=== PATIENT | male | born 1990 | race Caucasian/White ===

== ENCOUNTER 2017-09-01 14:15 | Emergency (ER) | payer SELFPAY ==
[~2017-09-01] VITALS: Ht 188 cm; Wt 64.0 kg
[~2017-09-01 14:15] MED LIST: BACT800T5 PO; CEPH-460 PO
[2017-09-01 14:17] VITALS: BP 136/79; PULSE 92; RESP 16; TEMP 98.5; O2SAT 98
[2017-09-01] MEDS ORDERED: AMOX500C PO (15:08)
[2017-09-01] MEDS ORDERED: IBUP1TAB7 PO (15:08)
[2017-09-01] MEDS ORDERED: MOME17I EACH NARE (15:08)
--- NOTE | 2017-09-01 15:08 | PD ---
HPI Chief Complaint: Cold / Flu Symptoms Time Seen by Provider: 14:50 Travel History International Travel<30 days: No Contact w/Intl Traveler<30days: No Traveled to known affect area: No History of Present Illness HPI 27-year-old male presents to emergency Department with complaint of nasal congestion, headache, body aches, cough 2 weeks. Reports subjective fevers a week ago. Reports onset of right ear pain last night. Reports sinus pressure. Denies chest tightness, chest pain, shortness of breath, wheezing. Reports tobacco use. Denies abdominal pain, vomiting. Has been using [id number] medications for symptom management. Symptoms are mild in severity. No known aggravating or relieving factors. No primary care provider. Denies significant past medical history. Has no other medical complaints. No other modifying factors or associated signs and symptoms. 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 STS "I'M IN RECOVERY." "PLEASE LIST ALLERGY." Reported Meds & Prescriptions Reported Meds & Active Scripts Active Nasonex Nasal [place] (Mometasone Furoate) 50 Mcg/Act Naspr 2 [place] EACH NARE DAILY PRN Ibuprofen 800 Mg Tab 800 Mg PO Q6HR PRN Amoxicillin 500 Mg Cap 500 Mg PO BID 10 Days Keflex (Cephalexin) 500 Mg Cap 500 Mg PO Q6H 7 Days Bactrim DS (Sulfamethoxazole-Trimethoprim) 800-160 Mg Tab 1 Tab PO BID Review of Systems Except as stated in HPI: all other systems reviewed are Neg Physical Exam Narrative GENERAL: Well-nourished, well-developed male patient, in no acute distress; afebrile, nontoxic-appearing SKIN: Warm and dry. No rash. HEAD: Atraumatic. Normocephalic. EYES: Pupils equal and round. No scleral icterus. No injection or drainage. EARS: Bilateral pinnae and external canals appear within normal limits. Right tympanic membrane with erythema, loss of landmarks, and with dullness; without perforation. ENT: Mucosa pink and moist. Oral Pharynx without erythema; without edema or exudates. No uvular edema. No uvular, palatal, or tonsillar deviation. Airway patent. NECK: Trachea midline. No lymphadenopathy. CARDIOVASCULAR: Regular rate and rhythm. No murmur appreciated. RESPIRATORY: No accessory muscle use. Clear to auscultation. Breath sounds equal bilaterally. GASTROINTESTINAL: Flat. MUSCULOSKELETAL: No obvious deformities. No clubbing. No cyanosis. No edema. NEUROLOGICAL: Awake and alert. Oriented 3. No obvious cranial nerve deficits. Motor grossly within normal limits. Normal speech. Moves all extremities. 5/5 strength to all extremities. PSYCHIATRIC: Appropriate mood and affect; insight and judgment normal. Data Data Last Documented VS Vital Signs Date Time Temp Pulse Resp B/P (MAP) Pulse Ox O2 Delivery O2 Flow Rate FiO2 09/01/17 14:17 98.5 92 16 136/79 (98) 98 Orders Orders Ed Discharge Order (09/01/17 15:06) MDM Medical Decision Making Medical Screen Exam Complete: Yes Emergency Medical Condition: Yes Medical Record Reviewed: Yes Differential Diagnosis Sinusitis, otitis media, upper respiratory infection Narrative Course 27-year-old male physical exam consistent with right otitis media. He has been sick with upper respiratory infection for 2 weeks. He is afebrile and nontoxic- appearing. Reports subjective fevers a week ago. Denies vomiting. Amoxicillin and ibuprofen prescribed for home. Instructed patient to follow up with primary care provider. Patient verbalizes understanding and agreement with treatment plan. Patient is medically cleared and stable for discharge. Discussed reasons to return to the emergency department. Patient agrees with treatment plan. The patients vital signs are stable and the patient is stable for outpatient follow-up and treatment. Patient discharged home, stable and in no acute distress. Diagnosis Primary Impression: Otitis media Qualified Codes: H65.91 - Unspecified nonsuppurative otitis media, right ear Referrals: [facility] Primary Care Physician Patient Instructions: General Instructions, Serous Otitis Media (ED), Sinusitis (ED) Departure Forms: Tests/Procedures, Work Release Enter return to work date: Sep 03, 2017 Additional Instructions: Antibiotics as prescribed and complete full course Ibuprofen or Tylenol as instructed and as needed for fever/pain [id number] cough and cold medications as directed and as needed for symptom management Get plenty of sleep/rest Drink plenty of fluids to prevent dehydration; popsicles and Gatorade Use an air humidifier/turn off ceiling fans Follow-up with primary care provider Return immediately to the emergency department with worsening of symptoms Med/Other Pt SpecificInfo: Prescription(s) given Scripts Mometasone Nasal [place] (Nasonex Nasal [place]) 50 Mcg/Act Naspr 2 SPRAY EACH NARE DAILY Y for NASAL CONGESTION, #1 BOTTLE 0 Refills Prov: Laxmi Barlow 09/01/17 Ibuprofen (Ibuprofen) 800 Mg Tab 800 MG PO Q6HR Y for PAIN, #20 TAB 0 Refills Prov: Laxmi Barlow 09/01/17 Amoxicillin (Amoxicillin) 500 Mg Cap 500 MG PO BID for Infection for 10 Days, #20 CAP 0 Refills Prov: Laxmi Barlow 09/01/17 Disposition: 01 DISCHARGE HOME Condition: Stable Laxmi Barlow Sep 01, 2017 15:08
== END 2017-09-01 15:22 | disposition home or self-care (01) ==
LOC: NEPK 14:15
DX: H65.91 Unspecified nonsuppurative otitis media, right ear (principal); F17.200 Nicotine dependence, unspecified, uncomplicated
CPT/HCPCS: 99284